=== PATIENT | male | born 1985 | race Caucasian/White ===

== ENCOUNTER 2016-04-23 08:37 | Emergency (ER) | payer SELFPAY ==
[~2016-04-23] VITALS: Ht 172.7 cm; Wt 97.0 kg
[2016-04-23 08:38] VITALS: Ht 172.7 cm; Wt 97.0 kg
[2016-04-23] MEDS ORDERED: LIDOCAINE/MYLANTA 40 ML BTL PO STA (09:42)
[2016-04-23] MEDS ORDERED: ONDANSETRON (ODT) 4 MG TAB ODT STA (09:42)
--- NOTE | 2016-04-23 09:59 | ERD ---
ER Documentation Chief Complaint Date/Time DATE: 04/23/16 TIME: 09:50 Chief Complaint SOB CHEST PAIN STARTED X 3 DAYS HPI Patient is a 30-year-old male with past medical history of hypertension who presents to emergency department with chest pain and shortness of breath 3 days. Patient states that the pain started in his midsternal region and now is in his left chest. Patient also states the pain is in his epigastric region and does radiate to his back. He states that the pain has been constant. He describes it to feel as "soreness after working out," however the patient has not worked out for over one week. Patient denies lifting any heavy objects or trauma. Patient also complaining of shortness of breath. He states that his symptoms are worse with exertional activity such as running. Patient denies any jaw pain, arm pain, diaphoresis, loss of consciousness. Patient denies any recent travel, prolonged sitting, recent surgery, hx of DVT or pulmonary embolism. Patient also reports decreased appetite and nausea. Patient denies any vomiting, diarrhea or pain with urination. Of note, patient reports increase in stress recently, he states that he recently from his . ROS All systems reviewed and are negative except as per history of present illness. PMhx/Soc History of Surgery: No Anesthesia Reaction: No Hx Neurological Disorder: No Hx Respiratory Disorders: No Hx Cardiac Disorders: Yes (HTN) Hx Cardiac Disorders: No Hx Alcohol Use: Yes (socially) Hx Substance Use: Yes (marijuana) Hx Tobacco Use: No FmHx Family History: coronary disease, diabetes Physical Exam Vitals Vital Signs Date Time Temp Pulse Resp B/P Pulse Ox O2 Delivery O2 Flow Rate FiO2 04/23/16 08:38 98.2 79 20 156/94 98 Physical Exam GENERAL: Well-developed, well-nourished male. Appears in no acute distress. Speaking in full sentences. HEAD: Normocephalic, atraumatic. EYES: Pupils are equally reactive bilaterally. EOMs grossly intact. No conjunctival erythema. ENT: Moist mucous membranes. No uvula deviation. No kissing tonsils. NECK: Supple. No lymphadenopathy or thyromegaly. No meningismus. Trachea is midline LUNG: Clear to auscultation bilaterally. No rhonchi, wheezing, rales or coarse breath sounds. Chest wall is nontender to palpation. HEART: Regular rate and rhythm. No murmurs, rubs or gallops. ABDOMEN: No scars, ecchymosis or rashes noted. Soft, nontender, and nondistended. Positive bowel sounds in all four quadrants. No rebound tenderness , no guarding. (-) McBurneys point tenderness. No CVA tenderness. BACK: No midline tenderness. EXTREMITIES: Equal pulses bilaterally. No peripheral clubbing, cyanosis or edema. No unilateral leg swelling. NEUROLOGIC: Alert and oriented. Moving all four extremities without any difficulty. Normal speech. Steady gait. SKIN: Normal color. Warm and dry. No rashes or lesions. Non-diaphoretic. Result Diagram: 04/23/16 1003 04/23/16 1003 Results 24 hrs Laboratory Tests Test 04/23/16 10:03 04/23/16 10:34 Anion Gap 19 Basophils # 0.010^3/ul Basophils % 0.5% Blood Morphology Comment Blood Urea Nitrogen 20mg/dl Calcium Level 9.5mg/dl Carbon Dioxide Level 27mmol/L Chloride Level 103mmol/L Creatinine 1.03mg/dl Eosinophils # 0.310^3/ul Eosinophils % 3.6% Glucose Level 98mg/dl Hematocrit 48.1% Hemoglobin 16.2g/dl Lipase 105U/L Lymphocytes # 2.310^3/ul Lymphocytes % 29.5% Mean Corpuscular Hemoglobin 28.2pg Mean Corpuscular Hemoglobin Concent 33.6g/dl Mean Corpuscular Volume 83.8fl Mean Platelet Volume 8.2fl Monocytes # 0.610^3/ul Monocytes % 7.3% Neutrophils # 4.510^3/ul Neutrophils % 59.1% Nucleated Red Blood Cells # 0.010^3/ul Nucleated Red Blood Cells % 0.0/100WBC Platelet Count 33013^3/UL Potassium Level 4.2mmol/L Red Blood Count 5.7410^6/ul Red Cell Distribution Width 13.6% Sodium Level 145mmol/L Troponin I < 0.012ng/ml White Blood Count 7.610^3/ul Bedside Urine Blood Negative Bedside Urine Glucose (UA) Negative Bedside Urine Ketones (LAB) 2+ Bedside Urine Leukocyte Esterase (L Negative Bedside Urine Nitrite (LAB) Negative Bedside Urine Protein (LAB) 1+ Bedside Urine pH (LAB) 6.0 Current Medications Medications (Trade) Dose Ordered Sig/Puja Route PRN Reason Start Time Stop Time Status Last Admin Dose Admin Miscellaneous Medication (Gi Cocktail (2)) 40 ml ONCE STAT PO 04/23/16 09:42 04/23/16 09:46 DC 04/23/16 10:05 Ondansetron HCl (Zofran Odt) 8 mg ONCE STAT ODT 04/23/16 09:42 04/23/16 09:46 DC 04/23/16 10:07 Procedures/MDM ED COURSE: The patient was stable throughout ED course. I kept the patient and/or family informed of laboratory and diagnostic imaging results throughout the ED course. EKG: Read by Dr. Mcdonnell, attending physician. EKG shows normal sinus rhythm at a rate of 78 bpm. No arrhythmias, acute ST elevations or T wave changes were noted. DIAGNOSTIC IMAGING: Read by radiologist. DIAGNOSTIC IMAGING REPORT Patient: HUMBERTO CLEMENT : 1985 Age: 30 Sex: M MR #: [id number] DOS: 04/23/16 0942 Ordering MD: CHRISTIAN ENG PA-C Location: [facility] Room/Bed: PROCEDURE: XR Chest. CLINICAL INDICATION: Chest pain TECHNIQUE: A single portable view of the chest was obtained. COMPARISON: None FINDINGS: The cardiomediastinal silhouette is within normal limits. The lungs and pleural spaces are clear. The soft tissues and osseous structures are unremarkable. IMPRESSION: No acute cardiopulmonary disease. RPTAT: [facility]PN[facility] Physician Canelo Date Time Electronically viewed and signed by Physician Canelo on 04/23/2016 10 :17 / CC: CHRISTIAN ENG PA-C MEDICATIONS GIVEN: Zofran, GI cockail Patient tolerated medication well with no adverse reactions. Patient reported improvement in pain. MEDICAL DECISION MAKING: This is a 30 year old male with PMHx of HTN who presents with chest pain and SOB. Patient denied any leg swelling, recent surgeries, travel. Vital signs were reviewed. Patient was afebrile. Patient was not hypoxic. Cardiac exam was normal. Lung exam was normal. CBC was within normal limits, no signs of active infection or blood loss. CMP was within normal limits. EKG was within normal limits.Troponin was negative. Low suspicion for acute coronary syndrome, arrhythmia or pericarditis. Low suspicion for acute coronary syndrome, arrhythmia or pericarditis. Lipase showed no signs of acute pancreatitis. Urine was negative for acute infection or hematuria. Low suspicion for UTI or pyelonephritis. CXR was within normal limits. Low suspicion for pneumothorax, pneumonia or pleural effusion. PERC score was 0. Low suspicion for PE or DVT. Upon reexamination, the patient reported improvement of nausea and epigastric pain after receiving GI cocktail and Zofran. Given these findings, the patients presentation is most consistent with chest pain and shortness of breath of unknown etiology. Low suspicion for cardiac etiology at this time. Symptoms may be due to gastritis however and able to rule out PUD at this time. DISCHARGE: At this time, patient is stable for discharge and outpatient management. I have instructed the patient to follow-up with his/her primary care physician in 1-2 days. I advised the patient to follow-up with that case resource manager for further examinations and testing including a stress test. I have instructed the patient to promptly return to the ER at any time for any new or worsening symptoms including increased increased pain, fever, nausea, vomiting, numbness, weakness , diaphoresis or LOC. The patient and/or family expressed understanding of and agreement with this plan. All questions were answered. Home care instructions were provided. Patients blood pressure was elevated (>120/80) but appears stable without evidence of hypertensive emergency, hypertensive urgency or end-organ failure. I had discussion with the patient about the risks of hypertension. I have advised the patient to follow up with his/her primary care physician for outpatient monitoring and treatment for hypertension in 2-3 days. I have instructed the patient to return to the ER for any new or worsening symptoms including chest pain, shortness of breath, headache, blurred vision, confusion, nausea, vomiting or LOC. Departure Diagnosis: Primary Impression: Chest pain Chest pain type: unspecified Qualified Code: R07.9 - Chest pain, unspecified type Additional Impression: Shortness of breath Condition: Stable Patient Instructions: Chest Pain, Uncertain Cause Additional Instructions: Return to the emergency department any new or worsening symptoms including chest pain, shortness of breath, fever, chills, nausea, vomiting, diaphoresis. Patient will need to follow-up with a case resource manager for further workup of his symptoms. Stress test advised. Call your primary care doctor TOMORROW for an appointment during the next 1-2 days.See the doctor sooner or return here if your condition worsens before your appointment time. CHRISTIAN ENG PA-C Apr 23, 2016 09:59
--- NOTE | 2016-04-23 10:17 | RADRPT ---
PROCEDURE: XR Chest. CLINICAL INDICATION: Chest pain TECHNIQUE: A single portable view of the chest was obtained. COMPARISON: None FINDINGS: The cardiomediastinal silhouette is within normal limits. The lungs and pleural spaces are clear. The soft tissues and osseous structures are unremarkable. IMPRESSION: No acute cardiopulmonary disease. RPTAT: [facility] Physician Canelo Date Time Electronically viewed and signed by Hector Day Physician on 04/23/2016 10:17 /
[2016-04-23 10:22] LABS: BASOPHILS % 0.5 % (0.0-2.0); EOSINOPHILS # 0.3 10^3/ul (0.0-0.5); EOSINOPHILS % 3.6 % (0.0-7.0); HEMATOCRIT 48.1 % (42.0-52.0); HEMOGLOBIN 16.2 g/dl (14.0-18.0); LYMPHOCYTES # 2.3 10^3/ul (0.8-2.9); LYMPHOCYTES % 29.5 % (15.0-51.0); MEAN CORPUSCULAR HEMOGLOBIN 28.2 pg (29.0-33.0); MEAN CORPUSCULAR HGB CONC 33.6 g/dl (32.0-37.0); MEAN CORPUSCULAR VOLUME 83.8 fl (82.0-101.0); MEAN PLATELET VOLUME 8.2 fl (7.4-10.4); MONOCYTE # 0.6 10^3/ul (0.3-0.9); MONOCYTES % 7.3 % (0.0-11.0); NEUTROPHIL # 4.5 10^3/ul (1.6-7.5); NEUTROPHILS % 59.1 % (39.0-77.0); PLATELET COUNT 338 10^3/UL (140-440); RED BLOOD COUNT 5.74 10^6/ul (4.70-6.10); RED CELL DISTRIBUTION WIDTH 13.6 % (11.5-14.5); UNCORRECTED WBC 7.6 10^3/ul (4.8-10.8); WHITE BLOOD COUNT 7.6 10^3/ul (4.8-10.8)
[2016-04-23 10:29] LABS: CHLORIDE 103 mmol/L (97-110); POTASSIUM 4.2 mmol/L (3.5-5.1); SODIUM 145 mmol/L (135-144)
[2016-04-23 10:32] LABS: ANION GAP 19 (8-16); BLOOD UREA NITROGEN 20 mg/dl (7-20); CARBON DIOXIDE 27 mmol/L (21-31); CREATININE 1.03 mg/dl (0.61-1.24)
[2016-04-23 10:33] LABS: URINE BLOOD (Dip) POC Negative (NEGATIVE)
[2016-04-23 10:33] LABS: CALCIUM 9.5 mg/dl (8.4-10.2); GLUCOSE 98 mg/dl (70-220)
[2016-04-23 10:36] LABS: CONDITION 1
[2016-04-23 10:48] LABS: TROPONIN-I < 0.012 ng/ml (0.00-0.12)
== END 2016-04-23 14:09 | disposition home or self-care (01) ==
LOC: FTE 08:37
DX: R07.9 Chest pain, unspecified (principal); I10 Essential (primary) hypertension; R11.0 Nausea
CPT/HCPCS: 71010; 80048; 81003; 83690; 84484; 85025; 93005